=== PATIENT | male | born 1970 | race Caucasian/White ===

== ENCOUNTER 2020-03-07 07:56 | Emergency (ER) | payer MEDICAID ==
[~2020-03-07] VITALS: Ht 190.5 cm; Wt 147.4 kg
[2020-03-07 07:59] VITALS: BP 165/89
--- NOTE | 2020-03-07 08:05 | NUR ---
PT AMB TO BED 7
--- NOTE | 2020-03-07 08:18 | NUR ---
C/O RIGHT EYE PAIN, REDNESS X YESTERDAY. PT AOX 4 , AFIBRILE , AMBULATORY WITH STEADY GAIT , PINK PALPEBRAL CONJUNCTIVA , ANICTERIC SCLERA , SCE , ROUND SOFT ABDOMEN. MED HX: DENIES VA: RIGHT EYE 20/50, LEFT EYE 20/40, BOTH EYE 20/40
[2020-03-07] MEDS ORDERED: FLUORESCEIN OPTH STRIP 1 MG OP ONE (08:20)
--- NOTE | 2020-03-07 08:20 | NUR ---
dr mehta at bedside evaluating pt.
[2020-03-07] MEDS ORDERED: TETRACAINE HCL/PF 0.5% OPTH 4 ML BTL OP ONE (08:25)
[2020-03-07] MEDS ORDERED: TETRACAINE HCL/PF 0.5% OPTH 4 ML BTL ONE (08:26)
--- NOTE | 2020-03-07 08:49 | NUR ---
[facility]
[2020-03-07 09:34] VITALS: BP 165/89
--- NOTE | 2020-03-07 09:34 | NUR ---
Patient discharged with v/s stable. Written and verbal after care instructions given and explained regarding foreign body to eyes. Patient alert, oriented and verbalized understanding of instructions. Ambulatory with steady gait. All questions addressed prior to discharge. ID band removed. Patient advised to follow up with PMD. Rx of motrin , norco and erythromycin eye drops given. Patient educated on indication of medication including possible reaction and side effects. Opportunity to ask questions provided and answered.Instructed to ff up with eye clinic.
== END 2020-03-07 09:34 | disposition home or self-care (01) ==
LOC: MED 07:56
DX: T15.91XA Foreign body on external eye, part unspecified, right eye, initial encounter (principal); F17.210 Nicotine dependence, cigarettes, uncomplicated
CPT/HCPCS: 65222; 99284

== ENCOUNTER 2022-08-09 23:00 | Inpatient (IN) | payer MEDICAID ==
[~2022-08-09] VITALS: Ht 190.5 cm; Wt 120.7 kg
[2022-08-09 23:38] VITALS: BP 133/84
--- NOTE | 2022-08-10 03:03 | NUR ---
Patient taken to bed 3.
--- NOTE | 2022-08-10 03:25 | NUR ---
Patient lying in bed, A/Ox4, chest rise and fall symmetrical, no s/s of distress.
--- NOTE | 2022-08-10 03:49 | NUR ---
Dr. Hines examining patient.
--- NOTE | 2022-08-10 04:07 | NUR ---
X-Ray at bedside.
[2022-08-10 04:43] LABS: BASOPHILS # (AUTO) 0.1 K/uL (0.00-0.22); EOSINOPHILS # (AUTO) 0.3 K/uL (0-0.4); EOSINOPHILS % (AUTO) 3.6 % (0.0-4.0); HEMATOCRIT 44.1 % (36-52); HEMOGLOBIN 14.7 g/dL (12.0-18.0); LYMPHOCYTES % (AUTO) 20.2 % (20.5-51.1); MEAN CORPUSCULAR HEMOGLOBIN 28 pg (27-31); MEAN CORPUSCULAR HGB CONC 33 g/dL (33-37); MEAN CORPUSCULAR VOLUME 85.1 fL (80-94); MONOCYTES # (AUTO) 1.4 K/uL (0.8-1.0); MONOCYTES % (AUTO) 14.1 % (1.7-9.3); NEUTROPHILS % (AUTO) 61.1 % (42.2-75.2); PLATELET COUNT (AUTO) 170 K/uL (140-450); RED BLOOD CELL COUNT(AUTO) 5.18 MIL/uL (4.20-6.10); RED CELL DISTRIBUTION WIDTH 13.9 % (11.6-13.7); WHITE BLOOD COUNT (AUTO) 9.7 K/uL (4.8-10.8)
[2022-08-10 05:11] LABS: BARBITURATE, URINE NEGATIVE ng/ml (NEG <=200); BENZODIAZEPINE, URINE NEGATIVE ng/mL (NEG <=200); CANNABINOID, URINE NEGATIVE ng/mL (NEG <=50); COCAINE, URINE NEGATIVE ng/mL (NEG <=300); OPIATE, URINE NEGATIVE ng/mL (NEG <=2000); PHENCYCLIDINE SCREEN,URINE NEGATIVE ng/mL (NEG <=25)
[2022-08-10 05:15] LABS: ANION GAP 9.7 (8-16); CARBON DIOXIDE 29.9 mmol/L (21-32); CREATININE 0.9 mg/dL (0.6-1.3); POTASSIUM 3.6 mmol/L (3.5-5.1)
[2022-08-10] MEDS ORDERED: VANCOMYCIN 1,000 MG in DEXTROSE 5% 250 ML IV ONE (05:25)
[2022-08-10] MEDS ORDERED: PIPERACILLIN/TAZOBACTAM 3.375 GM in DEXTROSE 5% 50 ML IV ONE (05:25)
--- NOTE | 2022-08-10 05:25 | NUR ---
COVID-19 swab collected and sent to lab.
[2022-08-10] MEDS ORDERED: MORPHINE SULFATE 2 MG/ML SYR IVP PRN ×2 (05:30→07:30)
[2022-08-10] MEDS ORDERED: VANCOMYCIN 1,000 MG VIAL ONE (05:36)
[2022-08-10] MEDS ORDERED: PIPERACILLIN/TAZOBACTAM 3.375 GM VIAL IV ONE (05:36)
--- NOTE | 2022-08-10 05:50 | NUR ---
Patient lying in bed, A/Ox4, chest rise and fall symmetrical, no c/o pain or s/s of distress.
--- NOTE | 2022-08-10 07:00 | NUR ---
Patient lying in bed, A/Ox4, chest rise and fall symmetrical, no c/o pain or s/s of distress.
--- NOTE | 2022-08-10 07:16 | NUR ---
belongings list done.
--- NOTE | 2022-08-10 07:20 | NUR ---
Change of shift report given to AM shift nurse Adze RN. AM shift nurse Adze RN verbalized understanding of report, no further questions.
[2022-08-10] MEDS ORDERED: ACETAMINOPHEN 325 MG TAB PO PRN (07:30)
[2022-08-10] MEDS ORDERED: DOCUSATE SODIUM 100 MG GELCAP PO PRN (07:30)
[2022-08-10] MEDS ORDERED: ZOLPIDEM 10 MG TAB PO PRN (07:30)
[2022-08-10] MEDS ORDERED: MAG SULF 2000 MG/WATER PREMIX 50 ML IV PRN (07:30)
[2022-08-10] MEDS ORDERED: LORazepam 2 MG/ML VIAL IVP PRN (07:30)
[2022-08-10] MEDS ORDERED: POTASSIUM CHLORIDE 10 MEQ TABER PO PRN (07:30)
[2022-08-10] MEDS ORDERED: ONDANSETRON 4 MG/2 ML VIAL IVP PRN (07:30)
[2022-08-10] MEDS ORDERED: DEXTROSE 50% 50 ML SYR IVP PRN (07:35)
[2022-08-10] MEDS ORDERED: VANCOMYCIN PER PHARMACY MC PRN (07:35)
[2022-08-10 09:00] VITALS: BP 119/68
--- NOTE | 2022-08-10 09:40 | NUR ---
RECEIVE 52 YRS. OLD PATIENT FROM ER FOR L. 3RD TOE RE & FOOT SWALLOWING BESIDES FOOT PAIN FOR ONE MONTH. PATIENT IS ALERT & ORIENTED , AMBULATORY ON ROOM AIR. DIAGNOSIS WITH CELLULITIS R/O OSTEOMYELITIS W/ NO SIGNIFICANT MEDICAL HX EXCEPT OCCURRENCE ILLEGAL DRUG USE. IV VANCOMYCIN GIVEN IN ER VIA L. FOREARM 20G PIV SITE. ONAC&HS. NO SKIN ISSUE EXCEPT LLE SWALLOW. WILL CONTINUE TO MONITOR
--- NOTE | 2022-08-10 09:51 | NUR ---
PATIENT HAS BEEN SCREENED AND CATEGORIZED MODERATE NUTRITION RISK. PATIENT WILL BE SEEN WITHIN 3-5 DAYS OF ADMISSION. / REVIEWED BY ELOISE SHAW RD
[2022-08-10] MEDS: BLOOD GLUCOSE MONITORING 1 DEV DEV FS SCH ×2 (12:01→16:59)
[2022-08-10] MEDS: PIPERACILLIN/TAZOBACTAM 3.375 GM in DEXTROSE 5% 50 ML IV SCH ×3 (12:02→23:53)
[2022-08-10] MEDS: VANCOMYCIN 1.25GM PREMIX 250 ML IV SCH ×2 (13:42→21:23)
[2022-08-10 16:00] VITALS: BP 101/69
[2022-08-10] MEDS: INSULIN LISPRO SLIDING SCALE 100 UNITS/ML VIAL SUBQ PRN (16:59)
--- NOTE | 2022-08-10 19:10 | NUR ---
ENDORSE PATIENT IN STABLE CONDITION TO PM SHIFT NURSE THAT IV @L.FOREARM SALINE LOCK AFT TWO DOSE OF ZOSYN AND 1 DOSE VANCO GIVEN.
[2022-08-10 20:00] VITALS: BP 105/53
--- NOTE | 2022-08-10 20:55 | NUR ---
PT'S SISTER CALLED C/O PT "NOT IN A GOWN." PT CHANGED INTO GOWN. PT REMARKED THAT HIS SISTER WAS HERE TO VISIT EARLIER. PT COULD NOT EXPLAIN WHY HIS SISTER DID NOT NOTIFY STAFF WHILE SHE WAS HERE. Addendum: 08/11/22 at 0202 by Agency 08 RN RN PT'S SISTER IS VLADIMIR .
[2022-08-11] MEDS: BLOOD GLUCOSE MONITORING 1 DEV DEV FS SCH ×6 (00:11→20:34)
[2022-08-11] MEDS: PIPERACILLIN/TAZOBACTAM 3.375 GM in DEXTROSE 5% 50 ML IV SCH ×3 (04:57→18:16)
[2022-08-11] MEDS: VANCOMYCIN 1.25GM PREMIX 250 ML IV SCH ×3 (05:33→20:26)
--- NOTE | 2022-08-11 06:28 | NUR ---
PT WAS TRANSFERRED FROM 110-B TO 107-B W/O INCIDENT AND W ALL BELONGINGS IN HIS POSSESSION. PT TOLERATED MOVE WELL. CALL LIGHT IN REACH.
--- NOTE | 2022-08-11 07:20 | NUR ---
RECEIVED REPORT FROM NIGHT NURSE LYN FOR CONTINUITY OF CARE. IVF INFUSING WELL. CALL LIGHT KEPT WITHIN REACH. WILL CONTINUE TO MONITOR.
[2022-08-11 07:49] LABS: BASOPHILS # (AUTO) 0.1 K/uL (0.00-0.22); BASOPHILS % (AUTO) 0.6 % (0.0-2.0); EOSINOPHILS # (AUTO) 0.5 K/uL (0-0.4); EOSINOPHILS % (AUTO) 5.3 % (0.0-4.0); HEMATOCRIT 44.6 % (36-52); LYMPHOCYTES # (AUTO) 2.2 K/uL (2.0-11.5); LYMPHOCYTES % (AUTO) 23.5 % (20.5-51.1); MEAN CORPUSCULAR HEMOGLOBIN 28 pg (27-31); MEAN CORPUSCULAR HGB CONC 34 g/dL (33-37); MEAN CORPUSCULAR VOLUME 84.5 fL (80-94); MONOCYTES # (AUTO) 1.3 K/uL (0.8-1.0); MONOCYTES % (AUTO) 14.1 % (1.7-9.3); NEUTROPHILS # (AUTO) 5.4 K/uL (1.8-7.7); NEUTROPHILS % (AUTO) 56.5 % (42.2-75.2); PLATELET COUNT (AUTO) 190 K/uL (140-450); RED BLOOD CELL COUNT(AUTO) 5.27 MIL/uL (4.20-6.10); RED CELL DISTRIBUTION WIDTH 13.9 % (11.6-13.7); WHITE BLOOD COUNT (AUTO) 9.5 K/uL (4.8-10.8)
[2022-08-11 08:00] VITALS: BP 91/58
[2022-08-11 08:03] LABS: CARBON DIOXIDE 26.9 mmol/L (21-32); CREATININE 0.9 mg/dL (0.6-1.3); POTASSIUM 3.9 mmol/L (3.5-5.1)
--- NOTE | 2022-08-11 11:53 | NUR ---
BS CHECKED 126. NO COVERAGE NEEDED.
--- NOTE | 2022-08-11 13:03 | NUR ---
RECEIVED CALLED FROM PHARMACY SPOKE TO MARSHA. VANCO TROUGH 11.9. CONTINUE SAME DOSE.
[2022-08-11] MEDS: INSULIN LISPRO SLIDING SCALE 100 UNITS/ML VIAL SUBQ PRN (17:58)
--- NOTE | 2022-08-11 17:58 | NUR ---
BS CHECKED 181. INSULIN WAS GIVEN PER SLIDING SCALE.
--- NOTE | 2022-08-11 19:20 | NUR ---
REPORT GIVEN TO NIGHT NURSE RODRIGO FOR CONTINUITY OF CARE. REMAINS STABLE.
--- NOTE | 2022-08-11 19:25 | NUR ---
PATIENT IS AWAKE ALERT ORIENTED ON ROOM AIR. NO SOB NOTED. IV ACCESS ON THE LEFT FOREARM INTACT AND PATENT SALINE LOCK. NO COMPLAINTS OF PAIN. CALL LIGHT WITHIN REACH. SAFETY MEASURES IN PLACE.
[2022-08-11 20:00] VITALS: BP 120/63
[2022-08-11] MEDS ORDERED: VANCOMYCIN 500 MG VIAL ONE (20:10)
--- NOTE | 2022-08-11 20:26 | NUR ---
VANCOMYCIN ADMINISTERED ORDERED.
--- NOTE | 2022-08-11 20:34 | NUR ---
BLOOD SUGAR CHECK WAS 108. NO INSULIN COVERAGE NEEDED.
[2022-08-12] MEDS: VANCOMYCIN 1.25GM PREMIX 250 ML IV SCH ×3 (04:17→20:47)
[2022-08-12] MEDS: PIPERACILLIN/TAZOBACTAM 3.375 GM in DEXTROSE 5% 50 ML IV SCH ×6 (06:24→23:27)
[2022-08-12] MEDS: BLOOD GLUCOSE MONITORING 1 DEV DEV FS SCH ×4 (06:53→20:55)
--- NOTE | 2022-08-12 06:53 | NUR ---
CHECKED BLOOD SUGAR WAS 118. NO INSULIN COVERAGE NEEDED.
--- NOTE | 2022-08-12 07:15 | NUR ---
RECEIVED REPORT FROM NIGHT NURSE FOR CONTINUITY OF CARE. INITIAL ASSESSMENT DONE. IV SITE OUT. SLIGHT BLEEDING NOTED. NO C/O PAIN OR DISCOMFORT. CALL LIGHT KEPT WITHIN REACH. WILL CONTINUE TO MONITOR.
--- NOTE | 2022-08-12 07:16 | NUR ---
ENDORSED PATIENT TO DAY SHIFT NURSE FOR CONTINUITY OF CARE.
[2022-08-12 07:29] LABS: BASOPHILS # (AUTO) 0.1 K/uL (0.00-0.22); BASOPHILS % (AUTO) 0.9 % (0.0-2.0); EOSINOPHILS # (AUTO) 0.5 K/uL (0-0.4); EOSINOPHILS % (AUTO) 5.8 % (0.0-4.0); HEMATOCRIT 44.4 % (36-52); HEMOGLOBIN 14.9 g/dL (12.0-18.0); LYMPHOCYTES # (AUTO) 2.8 K/uL (2.0-11.5); LYMPHOCYTES % (AUTO) 32.6 % (20.5-51.1); MEAN CORPUSCULAR HEMOGLOBIN 28 pg (27-31); MEAN CORPUSCULAR HGB CONC 34 g/dL (33-37); MEAN CORPUSCULAR VOLUME 84.5 fL (80-94); MONOCYTES # (AUTO) 1.2 K/uL (0.8-1.0); MONOCYTES % (AUTO) 13.7 % (1.7-9.3); NEUTROPHILS # (AUTO) 4.1 K/uL (1.8-7.7); PLATELET COUNT (AUTO) 214 K/uL (140-450); RED BLOOD CELL COUNT(AUTO) 5.26 MIL/uL (4.20-6.10); RED CELL DISTRIBUTION WIDTH 13.9 % (11.6-13.7); WHITE BLOOD COUNT (AUTO) 8.7 K/uL (4.8-10.8)
[2022-08-12 07:34] LABS: ANION GAP 11.2 (8-16); CARBON DIOXIDE 27.8 mmol/L (21-32); CREATININE 0.9 mg/dL (0.6-1.3)
[2022-08-12 08:00] VITALS: BP 104/56
--- NOTE | 2022-08-12 09:05 | NUR ---
DC PLANNING ASSESSMENT COMPLETE PLEASE REFER TO ASSESSMENT FOR DETAILS PT REPORTS TENTATIVE DC PLAN IS TO RETURN HOME WITH MOTHER OR GF PROVDING TRANSPORTATION, WHEN MEDICALLY STABLE. Addendum: 08/12/22 at 0906 by Aurora MONTES DE OCA Amended: Links added.
--- NOTE | 2022-08-12 12:32 | NUR ---
BS CHECKED 126. NO COVERAGE NEEDED.
--- NOTE | 2022-08-12 14:03 | NUR ---
REINSERTED IV TO LAC 20 G. WITH GOOD BLOOD RETURN.
[2022-08-12 16:00] VITALS: BP 102/59
--- NOTE | 2022-08-12 16:33 | NUR ---
BS CHECKED 103. NO COVERAGE NEEDED.
--- NOTE | 2022-08-12 19:20 | NUR ---
PATIENT IN BED RESTING. NO SOB NOTED. BREATHING REGULAR NON LABORED. IV SITE ON THE LEFT AC 20G SALINE LOCK. NO C/O PAIN. FAMILY MEMBER AT BEDSIDE. CALL LIGHT ON EASY REACH. PATIENT IS AMBULATORY.
--- NOTE | 2022-08-12 19:25 | NUR ---
REPORT GIVEN TO NIGHT NURSE RODRIGO FOR CONTINUITY OF CARE. REMAINS STABLE.
--- NOTE | 2022-08-12 20:47 | NUR ---
ADMINISTERED SCHEDULED MEDICATION.
--- NOTE | 2022-08-12 20:55 | NUR ---
CHECKED BLOOD SUGAR WAS 127. NO INSULIN COVERAGE NEEDED.
[2022-08-13] VITALS: BP 126/71
[2022-08-13] MEDS: VANCOMYCIN 1.25GM PREMIX 250 ML IV SCH (04:45)
[2022-08-13] MEDS: PIPERACILLIN/TAZOBACTAM 3.375 GM in DEXTROSE 5% 50 ML IV SCH (06:40)
[2022-08-13] MEDS: BLOOD GLUCOSE MONITORING 1 DEV DEV FS SCH (06:45)
--- NOTE | 2022-08-13 07:25 | NUR ---
RECEIVED REPORT FROM NIGHT NURSE RODRIGO FOR CONTINUITY OF CARE. INITIAL ASSESSMENT DONE. CALL LIGHT KEPT WITHIN REACH. WILL CONTINUE TO MONITOR.
[2022-08-13 07:56] LABS: BASOPHILS # (AUTO) 0.1 K/uL (0.00-0.22); BASOPHILS % (AUTO) 0.9 % (0.0-2.0); EOSINOPHILS # (AUTO) 0.5 K/uL (0-0.4); EOSINOPHILS % (AUTO) 5.5 % (0.0-4.0); HEMATOCRIT 45.9 % (36-52); HEMOGLOBIN 15.6 g/dL (12.0-18.0); LYMPHOCYTES % (AUTO) 34.7 % (20.5-51.1); MEAN CORPUSCULAR HEMOGLOBIN 28 pg (27-31); MEAN CORPUSCULAR HGB CONC 34 g/dL (33-37); MEAN CORPUSCULAR VOLUME 83.5 fL (80-94); MONOCYTES % (AUTO) 11.2 % (1.7-9.3); NEUTROPHILS # (AUTO) 4.1 K/uL (1.8-7.7); NEUTROPHILS % (AUTO) 47.7 % (42.2-75.2); PLATELET COUNT (AUTO) 241 K/uL (140-450); RED CELL DISTRIBUTION WIDTH 13.8 % (11.6-13.7); WHITE BLOOD COUNT (AUTO) 8.5 K/uL (4.8-10.8)
[2022-08-13 08:00] VITALS: BP 105/61
--- NOTE | 2022-08-13 08:00 | NUR ---
Patient's Plan of Care was discussed and reviewed with JEAN PIERRE: MAURICIO
[2022-08-13 08:41] LABS: ANION GAP 12.3 (8-16); CARBON DIOXIDE 26.7 mmol/L (21-32); CREATININE 0.9 mg/dL (0.6-1.3)
--- NOTE | 2022-08-13 09:45 | NUR ---
SEEN BY DR. KENNEDY. PT WANTS TO GO HOME. DR. RESTREPO NOTIFIED IF CLEARED FOR DISCHARGE. WAITING FOR RESPONSE.
--- NOTE | 2022-08-13 11:21 | NUR ---
MADE FOLLOW UP CALLED TO DR. RESTREPO, NO RESPONSE.
--- NOTE | 2022-08-13 11:24 | NUR ---
PATIENT WANTING TO LEAVE. STILL AWAITING DR. RESTREPO. DR. KENNEDY NOTIFIED, PER PATIENT CAN LEAVE AGAINST MEDICAL ADVISE.
--- NOTE | 2022-08-13 11:40 | NUR ---
PATIENT LEFT AMA. EXPLAINED RISK AND BENEFITS.
== END 2022-08-13 11:40 | disposition left against medical advice (07) | DRG 720 ==
LOC: MED 23:00 → MMU 08-10 05:36 → MTU 08-10 08:06
PROVIDERS: ADMIT Family Medicine; ATTEND Family Medicine
DX: A41.9 Sepsis, unspecified organism (principal); E83.51 Hypocalcemia; L03.032 Cellulitis of left toe; M86.8X7 Other osteomyelitis, ankle and foot; R73.9 Hyperglycemia, unspecified; F15.10 Other stimulant abuse, uncomplicated; M20.42 Other hammer toe(s) (acquired), left foot; M20.41 Other hammer toe(s) (acquired), right foot; L84 Corns and callosities; Z20.822 Contact with and (suspected) exposure to COVID-19; M86.9 Osteomyelitis, unspecified
CPT/HCPCS: 36415; 73660; 80048; 80202; 80305; 82948; 83605; 83735; 85025; 85651; 86140; 87040; 87081; 96365; 96375; 99285; J1815; J2543; J3370; J3372; J7060; Q0092

== ENCOUNTER 2023-12-13 05:40 | Emergency (ER) | payer MEDICAID ==
[~2023-12-13] VITALS: Ht 190.5 cm; Wt 113.4 kg
[2023-12-13 05:52] VITALS: BP 162/89; PULSE 95; RESP 16; TEMP 98.5; O2SAT 99
[2023-12-13] MEDS: IBUPROFEN 600 MG TAB PO ONE (08:03)
[2023-12-13 08:58] VITALS: BP 145/88; PULSE 88; RESP 16; TEMP 98; O2SAT 99
== END 2023-12-13 08:58 | disposition home or self-care (01) ==
LOC: MED 05:40
DX: S60.211A Contusion of right wrist, initial encounter (principal); R03.0 Elevated blood-pressure reading, without diagnosis of hypertension; W18.39XA Other fall on same level, initial encounter; Y93.89 Activity, other specified; Y92.89 Other specified places as the place of occurrence of the external cause; Y99.8 Other external cause status
CPT/HCPCS: 73090; 73110; 99284